=== PATIENT | female | born 1960 | race Two or more races ===

== ENCOUNTER 2017-10-16 14:08 | Outpatient (CLI) | payer OTHER ==
[~2017-10-16 14:08] MED LIST: ATENOLOL25 MG; TIROSINT50 MCG
== END 2017-10-16 14:20 | disposition home or self-care (01) ==
LOC: RAD 14:08
DX: J45.909 Unspecified asthma, uncomplicated (principal); E03.8 Other specified hypothyroidism

== ENCOUNTER → 2017-11-16 | Emergency (ER) | payer OTHER ==
[~2017-11-16] VITALS: Ht 170.2 cm; Wt 74.8 kg
[~2017-11-16] MED LIST changes: +SYNTHROID50 MCG PO
== END | disposition left against medical advice (07) ==
LOC: ER 21:26
DX: B34.9 Viral infection, unspecified (principal)

== ENCOUNTER → 2017-11-17 | Emergency (ER) | payer OTHER ==
[~2017-11-17] VITALS: Ht 170.2 cm; Wt 74.8 kg
== END | disposition home or self-care (01) ==
LOC: ER 17:13
DX: K29.70 Gastritis, unspecified, without bleeding (principal)

== ENCOUNTER 2019-08-31 14:53 | Outpatient (CLI) | payer OTHER | END 2019-08-31 14:55 | disposition home or self-care (01) | LOC: RAD 14:53 | DX: J20.8 Acute bronchitis due to other specified organisms (principal) ==

== ENCOUNTER 2023-01-02 23:14 | Emergency (ER) | payer OTHER ==
[~2023-01-02] VITALS: Ht 170.2 cm; Wt 76.2 kg
[2023-01-03] MEDS ORDERED: DICLOFENAC POTA50 MG PO (02:11)
[2023-01-03] MEDS ORDERED: MEDROLPACK PO (02:11)
== END 2023-01-03 02:56 | disposition home or self-care (01) ==
LOC: ER 23:14
DX: S00.93XA Contusion of unspecified part of head, initial encounter (principal); S80.02XA Contusion of left knee, initial encounter; W18.39XA Other fall on same level, initial encounter; Y93.89 Activity, other specified; Y92.018 Other place in single-family (private) house as the place of occurrence of the external cause; Y99.9 Unspecified external cause status; E03.9 Hypothyroidism, unspecified; Z87.09 Personal history of other diseases of the respiratory system

== ENCOUNTER 2024-06-29 14:50 | Outpatient (CLI) | payer OTHER ==
[~2024-06-29 14:50] MED LIST changes: +DICLOFENAC POTA50 MG PO; +MEDROLPACK PO
[2024-06-29 16:00] LABS: CREATININE SERUM 0.54 mg/dL (0.55-1.02)
== END 2024-06-29 14:55 | disposition home or self-care (01) ==
LOC: LAB 14:50
PROVIDERS: ATTEND Radiology Diagnostic Radiology
DX: R10.30 Lower abdominal pain, unspecified (principal)

== ENCOUNTER → 2024-07-05 08:49 | Outpatient (CLI) | payer OTHER | END | disposition home or self-care (01) | LOC: TOM 08:49 | PROVIDERS: ATTEND Obstetrics & Gynecology Obstetrics | DX: R10.31 Right lower quadrant pain (principal) ==

== ENCOUNTER 2024-09-13 05:10 | Day surgery (SDC) | payer OTHER ==
[2024-09-07 09:01] VITALS: BP 117/74
[2024-09-07 09:09] LABS: PH,URINE 7.5 (5.0-8.0); URINE APPEARANCE Clear; URINE BILIRRUBIN Negative (NEGATIVE); URINE BLOOD Negative; URINE COLOR Yellow; URINE GLUCOSE Negative (NEGATIVE); URINE KETONE Negative (NEGATIVE); URINE LEUKOCYTE Trace; URINE NITRATE Negative; URINE PROTEIN Negative (NEGATIVE); URINE UROBILINOGEN 0.2 E.U./dl
[2024-09-07 09:13] LABS: URINE BACTERIA 138.5 uL (0.0-1933); URINE EPITHELIAL CELLS 10.6 uL (0.0-38.8); URINE RBC 13.8 uL (0.0-20.8); URINE WBC 3.7 uL (0.0-23.2)
[2024-09-07 09:18] LABS: HEMATOCRIT 39.5 % (36.0-45.00); HEMOGLOBIN 13.6 g/dL (12.0-15.00); MEAN CELL VOLUME 87.7 fL (80.00-100.00); MEAN CORPUSCULAR HEMOGLOBIN 30.1 pg (27.00-32.0); MEAN CORPUSCULAR HGB CONC 34.3 g/dl (32.0-36.0); PLATELET COUNT 223 K/uL (150-450); RED BLOOD COUNT 4.51 M/uL (4.00-6.00); RED CELL DISTRIBUTION WIDTH 14.5 % (11.5-14.5)
[2024-09-07 09:37] LABS: URINE CAST 0.15 uL (0.0-1.40)
[2024-09-07 09:53] LABS: INR 0.96; PARTIAL THROMBOPLASTIN TIME 26.8 SECONDS (22.0-34.0); PROTHROMBIN TIME 10.5 SECONDS (9.0-11.5)
[2024-09-07 10:09] LABS: ALBUMIN 3.8 gm/dL (3.4-5.0); BILIRUBIN TOTAL 0.45 mg/dL (0.3-1.2); CALCIUM 9.6 mg/dL (8.5-10.1); CREATININE SERUM 0.54 mg/dL (0.55-1.02); GFR 114.39; GLOBULINA 3.8 G/DL (2.4-3.5); TOTAL PROTEIN 7.6 gm/dL (6.4-8.2); TSH 1.86 uIU/mL (0.358-3.74)
[2024-09-07 10:10] LABS: POTASSIUM 4.29 mEq/L (3.5-5.1)
[~2024-09-13] VITALS: Ht 170.2 cm; Wt 80.3 kg
[~2024-09-13 05:10] MED LIST changes: +CEFADROXIL500 MG PO; +VITAMIN D
[2024-09-13] MEDS ORDERED: CEFAZOLIN SODIUM 1,000 MG VIAL IV ONE (08:30)
[2024-09-13] MEDS ORDERED: FAMOTIDINE/PF 20 MG/10 ML SYRINGE IV SCH (09:45)
[2024-09-13] MEDS ORDERED: CEFAZOLIN SODIUM 1,000 MG VIAL IV SCH (09:45)
== END 2024-09-13 12:10 | disposition home or self-care (01) ==
LOC: CIR.AMB 05:10
PROVIDERS: ATTEND Specialist
DX: K40.90 Unilateral inguinal hernia, without obstruction or gangrene, not specified as recurrent (principal); E03.9 Hypothyroidism, unspecified

== ENCOUNTER 2024-12-09 13:19 | Outpatient (CLI) | payer OTHER | END 2024-12-09 13:26 | disposition home or self-care (01) | LOC: RAD 13:19 | PROVIDERS: ATTEND Internal Medicine Pulmonary Disease | DX: J20.9 Acute bronchitis, unspecified (principal) ==

== ENCOUNTER 2025-06-14 22:05 | Emergency (ER) | payer OTHER ==
[~2025-06-14] VITALS: Ht 152.4 cm; Wt 78.5 kg
[2025-06-14] MEDS ORDERED: 0.9 % SODIUM CHLORIDE 1,000 ML IV SCH (23:45)
[2025-06-14] MEDS ORDERED: FAMOTIDINE/PF 20 MG/2 ML VIAL IV PUSH ONE (23:45)
[2025-06-14] MEDS ORDERED: METOCLOPRAMIDE HCL 10 MG in DEXTROSE 5 % IN WATER 50 ML IV ONE (23:45)
[2025-06-15] MEDS ORDERED: PROMETHAZINE HCL 50 MG/ML AMPUL IM ONE (00:10)
[2025-06-15] MEDS ORDERED: FAMOTIDINE/PF 20 MG/2 ML VIAL ONE (00:11)
[2025-06-15] MEDS ORDERED: PROMETHAZINE HCL 50 MG/ML AMPUL IM STA (00:12)
[2025-06-15 01:09] LABS: BASO % 0.3 % (0.1-1.2); EOS # 0.01 (0.04-0.54); EOS % 0.1 % (0.7-7.0); LYMPH # 1.59 (1.18-3.74); LYMPH % 17.4 % (19.3-53.1); MEAN PLATELET VOLUME 11.40 fl (9.4-12.4); MONO # 0.58 (0.24-0.82); MONO % 6.3 % (4.7-12.5); NEUT # 6.94 (1.56-6.13); NEUT % 75.8 % (34.0-71.1); RED CELL DISTRIBUTION WIDTH 14.9 % (11.6-14.4)
[2025-06-15 01:31] LABS: ALT/SGPT 25.0 U/L (12-78); AST/SGOT 16.0 U/L (15-37); BILIRUBIN TOTAL 0.34 mg/dL (0.3-1.2); BUN CREA RATIO 23.0 (7.0-25.0); CREATININE SERUM 0.53 mg/dL (0.55-1.02); GFR 116.51; GLOBULINA 4.5 G/DL (2.4-3.5); GLUCOSE FASTING 99.0 mg/dL (65-100); OSMOLALITY SERUM 287.0 MOSM/KG (275-295)
[2025-06-15] MEDS ORDERED: PROMETHAZINE HCL 25 MG/ML AMPUL IM STA (04:40)
[2025-06-15] MEDS ORDERED: PROMETHAZINE HCL 25 MG/ML AMPUL ONE (04:45)
[2025-06-15] MEDS ORDERED: PHENERGAN25 MG PO (06:47)
== END 2025-06-15 06:49 ==
LOC: ER 22:50
PROVIDERS: General Practice
DX: K29.60 Other gastritis without bleeding (principal); Z88.8 Allergy status to other drugs, medicaments and biological substances